=== PATIENT | female | born 1945 | race Caucasian/White ===

== ENCOUNTER → 2017-03-26 | Outpatient (CLI) | payer OTHER ==
[~2017-03-26] MED LIST: ALDACTONE50 MG PO; ASPIR 8181 MG PO; ATORVASTATIN CA40 MG PO; CALCIUM 600 +1 EAC1 PO; CALCIUM-MAGNES1 EACH PO; CELEBREX 200 M200 MG PO; CLONAZEPAM 0.50.5 M1 PO; CVS BUFFERED A325 MG PO; GLUCOSAMINE CH1 EAC2 PO; HAIR, SKIN & N1 EAC3 PO; IBUPROFEN 200200 M1 PO; LOPRESSOR25 PO; MAGNESIUM250 M1 PO; MOBIC15 MG PO; OXYCONTIN10 M1 PO; PERCOCET PO; PROTONIX40 M1 PO; TURMERIC500 MG PO; TYLENOL325 MG PO; VITAMIN B-12500 MC5 SL
== END ==
LOC: NUC 09:30
DX: Z96.651 Presence of right artificial knee joint (principal)

== ENCOUNTER → 2020-11-15 | Outpatient (CLI) | payer OTHER | LOC: SJCVC 12:49 | PROVIDERS: ATTEND Internal Medicine | DX: I35.0 Nonrheumatic aortic (valve) stenosis (principal); I47.1 Supraventricular tachycardia; I65.23 Occlusion and stenosis of bilateral carotid arteries; I10 Essential (primary) hypertension; E78.5 Hyperlipidemia, unspecified; I73.9 Peripheral vascular disease, unspecified; Z87.891 Personal history of nicotine dependence; Z79.899 Other long term (current) drug therapy; Z79.82 Long term (current) use of aspirin ==

== ENCOUNTER → 2021-01-04 | Outpatient (CLI) | payer OTHER | LOC: SJCVCIMAG 12-13 11:34 | PROVIDERS: ATTEND Internal Medicine | DX: I08.3 Combined rheumatic disorders of mitral, aortic and tricuspid valves (principal); R00.0 Tachycardia, unspecified; I65.23 Occlusion and stenosis of bilateral carotid arteries; I10 Essential (primary) hypertension; E78.5 Hyperlipidemia, unspecified; M19.90 Unspecified osteoarthritis, unspecified site; I73.9 Peripheral vascular disease, unspecified; Z90.49 Acquired absence of other specified parts of digestive tract; Z90.710 Acquired absence of both cervix and uterus; Z79.82 Long term (current) use of aspirin; Z79.899 Other long term (current) drug therapy; Z87.891 Personal history of nicotine dependence; Z82.49 Family history of ischemic heart disease and other diseases of the circulatory system ==

== ENCOUNTER → 2021-02-01 | Outpatient (CLI) | payer OTHER ==
[~2021-02-01] VITALS: Ht 167.6 cm; Wt 87.1 kg
[~2021-02-01] MED LIST changes: +ALPRAZOLAM 0.50.5 M1 PO; +ASA81BEC PO; +CRESTOR20 MG PO; +LUTEIN10 MG PO; +MAGNESIUM400 MG PO; +VITAMIN B-650 M1 PO; +VITAMIN D3125 MC1 PO; +ZINC50 M2 PO
[2021-02-01 07:11] VITALS: BP 127/56
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
== END | disposition home or self-care (01) ==
LOC: CATH 06:21
PROVIDERS: ATTEND Internal Medicine
DX: R07.9 Chest pain, unspecified (principal); I35.0 Nonrheumatic aortic (valve) stenosis; I10 Essential (primary) hypertension; E78.00 Pure hypercholesterolemia, unspecified; F41.9 Anxiety disorder, unspecified; E78.5 Hyperlipidemia, unspecified; Z98.890 Other specified postprocedural states; Z79.899 Other long term (current) drug therapy; Z87.891 Personal history of nicotine dependence; Z88.8 Allergy status to other drugs, medicaments and biological substances

== ENCOUNTER → 2021-06-05 | Outpatient (CLI) | payer OTHER | LOC: SJCVC 13:34 | PROVIDERS: ATTEND Internal Medicine | DX: I35.0 Nonrheumatic aortic (valve) stenosis (principal); I10 Essential (primary) hypertension; E78.5 Hyperlipidemia, unspecified; I65.23 Occlusion and stenosis of bilateral carotid arteries; Z95.2 Presence of prosthetic heart valve; Z95.828 Presence of other vascular implants and grafts; I73.9 Peripheral vascular disease, unspecified; K57.30 Diverticulosis of large intestine without perforation or abscess without bleeding; M19.90 Unspecified osteoarthritis, unspecified site; Z90.49 Acquired absence of other specified parts of digestive tract; Z98.890 Other specified postprocedural states; Z90.710 Acquired absence of both cervix and uterus; Z79.82 Long term (current) use of aspirin; Z79.899 Other long term (current) drug therapy ==